=== PATIENT | female | born 1995 | race Caucasian/White ===

== ENCOUNTER 2018-10-18 21:03 | Inpatient (IN) | payer OTHER ==
[2018-10-18] MEDS ORDERED: PENICILLIN G-K 5 MILLION UNIT VIAL ONE (21:38)
[2018-10-18] MEDS ORDERED: OXYTOCIN 10 UNIT/ML VIAL ONE (21:38)
[2018-10-18] MEDS ORDERED: MISOPROSTOL 0.2 MG TABLET ONE (21:38)
[2018-10-18] MEDS ORDERED: OXYTOCIN/NORMAL SALINE 20 UNIT/1,000 ML RTUINJ ONE (21:38)
[2018-10-18] MEDS ORDERED: LIDOCAINE 1% INJ-PF (10 MG/ML) 30 ML SDV ONE (21:38)
[2018-10-18 21:55] LABS: HEMATOCRIT 33.6 % (36.0-47.0); HEMOGLOBIN 11.2 g/dL (12.0-15.5); MEAN CORPUSCULAR HEMOGLOBIN 28.3 pg (27.0-33.4); MEAN CORPUSCULAR HGB CONC 33.3 g/dL (32.0-36.0); MEAN CORPUSCULAR VOLUME 85 fl (80-97); PLATELET COUNT 386 10^3/uL (150-450); RED BLOOD COUNT 3.95 10^6/uL (3.72-5.28); RED CELL DISTRIBUTION WIDTH 13.9 % (11.5-14.0); WHITE BLOOD COUNT 22.8 10^3/uL (4.0-10.5)
[2018-10-18 21:58] LABS: APPEARANCE,URINE CLEAR; BILIRUBIN,URINE NEGATIVE (NEGATIVE); COLOR,URINE YELLOW; GLUCOSE, URINE NEGATIVE (NEGATIVE); KETONES,URINE NEGATIVE (NEGATIVE); LEUKOCYTE ESTERASE,URINE NEGATIVE (NEGATIVE); NITRITE,URINE NEGATIVE (NEGATIVE); PROTEIN,URINE NEGATIVE (NEGATIVE); URINE SPECIFIC GRAVITY 1.008; UROBILINOGEN,URINE NEGATIVE mg/dL (<2.0)
[2018-10-18] MEDS ORDERED: RINGERS SOLUTION,LACTATED 1,000 ML IV PRN (22:02)
[2018-10-18] MEDS ORDERED: PENICILLIN G POTASSIUM 5,000,000 UNIT in DEXTROSE 5%-WATER 100 ML IV ONE (22:03)
[2018-10-18 22:12] LABS: ABSOLUTE LYMPHOCYTES# (MANUAL) 7.5 10^3/uL (0.5-4.7); ABSOLUTE MONOCYTES # (MANUAL) 1.4 10^3/uL (0.1-1.4); ABSOLUTE NEUTROPHILS# (MANUAL) 13.7 10^3/uL (1.7-8.2); EOSINOPHILS % (MANUAL) 1 % (0-6); LYMPHOCYTES % (MANUAL) 33 % (13-45); MONOCYTES % (MANUAL) 6 % (3-13); SEGMENTED NEUTROPHILS % (MAN) 60 % (42-78); TOTAL CELLS COUNTED 100
[2018-10-18 22:14] LABS: URINE AMPHETAMINES SCREEN NEGATIVE; URINE BARBITURATES SCREEN NEGATIVE; URINE BENZODIAZEPINES SCREEN NEGATIVE; URINE COCAINE SCREEN NEGATIVE; URINE METHADONE SCREEN NEGATIVE; URINE PHENCYCLIDINE SCREEN NEGATIVE
[2018-10-18 22:14] LABS: PLATELET COMMENT ADEQUATE; RBC MORPHOLOGY COMMENT NORMO-CYTIC/CHROMIC
[2018-10-18 22:23] LABS: BASOPHILS % (MANUAL) 0 % (0-2)
[2018-10-18 22:24] LABS: URINE MARIJUANA (THC) SCREEN UNCONFIRMED POSITIVE
[2018-10-18 22:36] LABS: RUBELLA IGG ANTIBODY 6.78 IU/mL
[2018-10-18 22:53] LABS: RUBELLA INTERPRETATION NEGATIVE
[2018-10-18 23:26] LABS: CHLAM PCR NOT DETECTED (NOT DETECT); GON PCR NOT DETECTED (NOT DETECT)
--- NOTE | 2018-10-18 23:56 | Admission Physical ---
Datetime Report Generated by CPN: 10/18/2018 23:56 CURRENT ADMISSION Chief Complaint: Uterine Contractions Indication for Induction: Not Applicable Admit Impression : Term, Intrauterine ; No Active Labor; Intact Membranes Admit Impression- Other: No care Admit Plan: Observation/Evaluation ALLERGIES Medication Allergies: No Medication Allergies: No Known Allergies (11/30/2017) Latex: No Latex Allergies OBSTETRICAL HISTORY EDC: 10/28/2018 00:00 : 1 Para: 0 Term: 0 : 0 SAB: 0 IAB: 0 Ectopic: 0 Livin Cesareans: 0 VBACs: 0 Multiple Births: 0 Gestational Diabetes: No Rh Sensitization: No Incompetent Cervix: No MARIOLA: No Infertility: No ART Treatment: No Uterine Anomaly: No IUGR: No Hx Previous C/S: No Macrosomia: No Hx Loss/Stillborn: No PIH: No Hx : No Placenta Previa/Abruption: No Depression/PP Depression: No PTL/PROM: No Post Hemorrhage: No Current Procedures: Ultrasound Obstetrical History Comments: G1- current SEE RECORDS Alcohol: No Marijuana : Yes Cocaine: No Other Illicit Drugs: No Cigarettes: Smoker, Current Status Unknown. [id number] MEDICAL HISTORY Diabetes: No Blood Transfusion: No Pulmonary Disease (Asthma, TB): No Breast Disease: No Hypertension: No Checker Stocker Surgery: No Heart Disease: No Hosp/Surgery: No Autoimmune Disorder: No Anesthetic Complications: No Kidney Disease: No Abnormal Pap Smear: No Neuro/Epilepsy: No Psychiatric Disorders: Yes Other Medical Diseases: No Hepatitis/Liver Disease: No Significant Family History: No Varicosities/Phlebitis: No Trauma/Violence : No Thyroid Dysfunction: No Medical History Comments: Bipolar- on risperdal (not taking as perscribed) INFECTIOUS HISTORY Gonorrhea: No Genital Herpes: No Chlamydia: No Tuberculosis: No Syphilis: No Hepatitis: No HIV/AIDS Exposure: No Rash or Viral Illness: No HPV: No PHYSICAL EXAM General: Normal HEENT: Normal Neurologic: Normal Heart: Normal Lungs: Normal Genitourinary Exam: Normal Extremities: Normal Pelvic Type: Adequate Vital Signs: Reviewed; Within Normal Limits VAGINAL EXAM Dilatation: 2 Effacement: 100 Station: -2 Contraction Comments: q 2 min MEMBRANES Membranes: Intact FETUS A EGA: 38.4 Monitoring: External US FHR- Baseline: 125 Variability: Moderate 6-25bpm Accelerations: 15X15 Decelerations: None FHR Category: Category I Presentation: Vertex Admit Comment: Latent labor. Observe for cervical change. Admit if cervix makes a significant change. PLANS FOR LABOR AND DELIVERY Labor and Delivery: None Pain Management: Epidural INFORMED CONSENT Signature: with User ID: [email or web address]
[2018-10-19] MEDS ORDERED: EPHEDRINE SULFATE INJ 50 MG/1 ML AMPULE ONE ×2 (01:07→14:48)
[2018-10-19] MEDS ORDERED: FENTANYL/BUPIVACAINE/NS/PF 300 MCG/150 ML RTUINJ EPI ONE ×2 (01:08→13:49)
[2018-10-19] MEDS ORDERED: BUPIVACAINE HCL 0.25 % INJ/PF (2.5 MG/1 ML) 30 ML VIAL ONE (01:08)
[2018-10-19] MEDS ORDERED: PHENYLEPHRINE HCL INJ/PF 10 MG/1 ML SDV ONE (01:22)
[2018-10-19] MEDS ORDERED: FENTANYL CITRATE INJ/PF 100 MCG/2 ML AMPUL ONE (01:23)
[2018-10-19] MEDS ORDERED: PENICILLIN G-K 5 MILLION UNIT VIAL ONE ×3 (02:30→12:12)
[2018-10-19] MEDS: PENICILLIN G POTASSIUM 2,500,000 UNIT in DEXTROSE 5%-WATER 50 ML IV SCH ×3 (02:36→12:18)
[2018-10-19] MEDS ORDERED: OXYTOCIN/NORMAL SALINE 20 UNIT/1,000 ML RTUINJ IV PRN ×2 (06:48→17:35)
[2018-10-19] MEDS ORDERED: LIDOCAINE 2% INJ-PF (20 MG/ML) 10 ML AMPUL ONE ×2 (14:14→14:27)
[2018-10-19] MEDS ORDERED: OXYTOCIN/NORMAL SALINE 20 UNIT/1,000 ML RTUINJ ONE (17:25)
[2018-10-19] MEDS ORDERED: METHYLERGONOVINE MALEATE INJ/PF 0.2 MG/1 ML AMPULE ONE (17:26)
[2018-10-19] MEDS ORDERED: MISOPROSTOL 0.2 MG TABLET PR PRN (17:35)
[2018-10-19] MEDS ORDERED: PSEUDOEPHEDRINE HCL 30 MG TABLET PO PRN (17:35)
[2018-10-19] MEDS ORDERED: PROMETHAZINE HCL INJ 25 MG/1 ML VIAL IV PRN (17:35)
[2018-10-19] MEDS ORDERED: ACETAMINOPHEN WITH CODEINE #3 TABLET PO PRN ×2 (17:35)
[2018-10-19] MEDS ORDERED: PROMETHAZINE HCL 25 MG TABLET PO PRN (17:35)
[2018-10-19] MEDS ORDERED: ZOLPIDEM TARTRATE 5 MG TABLET PO PRN (17:35)
[2018-10-19] MEDS ORDERED: ACETAMINOPHEN 650 MG SUPP.RECT PR PRN (17:35)
[2018-10-19] MEDS ORDERED: NA PHOS,M-B/NA PHOS,DI-BA (ADULT) 133 ML ENEMA PR PRN (17:35)
[2018-10-19] MEDS ORDERED: MEASLES,MUMPS&RUBELLA VACC/PF 0.5 ML VIAL SUBCUT PRN (17:35)
[2018-10-19] MEDS ORDERED: BENZOCAINE/MENTHOL AEROSOL SPRAY 56 ML TOP PRN (17:35)
[2018-10-19] MEDS ORDERED: MAGNESIUM HYDROXIDE SUSP 30 ML UDCUP PO PRN (17:35)
[2018-10-19] MEDS ORDERED: GLYCERIN/WITCH HAZEL LEAF 1 EACH MED..WIPE TP PRN (17:35)
[2018-10-19] MEDS ORDERED: DIBUCAINE 1% OINTMENT 56 GM TP PRN (17:35)
[2018-10-19] MEDS ORDERED: PROMETHAZINE HCL 25 MG SUPP.RECT PR PRN (17:35)
[2018-10-19] MEDS ORDERED: DIPH/PERTUSS(ACELL)/TETANUS VAC/PF 0.5 ML SYR (>=10YO) IM PRN (17:35)
[2018-10-19] MEDS ORDERED: DIPHENHYDRAMINE HCL 25 MG CAPSULE PO PRN (17:35)
[2018-10-19] MEDS ORDERED: METHYLERGONOVINE MALEATE INJ/PF 0.2 MG/1 ML AMPULE IM PRN (17:35)
[2018-10-19] MEDS ORDERED: ACETAMINOPHEN WITH CODEINE #3 TABLET ONE (17:41)
--- NOTE | 2018-10-19 19:24 | Delivery Summary ---
Del Sum A-C Datetime Report Generated by CPN: 10/19/2018 19:24 DELIVERY PERSONNEL DELIVERY PERSONNEL: [id number] Delivery Doctor:: Colleen Bull MD Labor and Delivery Nurse:: Kaye Brown RNabrasive grinder Nurse:: Susan Humphrey RN Toll Gate Tender/PYROMETER MECHANIC: Subha Bishop, ST MATERNAL INFORMATION Delivery Anesthesia: Epidural Medications After Delivery: Pitocin Bolus-Please Comment; Methergine 0.2mg IM; Cytotec 1000mcg Per Rectum/Vagina Meds After Delivery Comment: Pitocin 20 units/1000 ml NSS 1500 mls Estimated Blood Loss (ml): 350 Maternal Complications: None Provider Comments: cytotec 1000 mcg per rectum methergine 0.2 mg IM given for bleeding LABOR SUMMARY EDC: 10/28/2018 00:00 No. Babies in Womb: 1 Attempted: No Labor Anesthesia: Epidural LABOR INFORMATION Reason for Induction: Not Applicable Onset of Labor: 10/19/2018 12:01 Complete Dilatation: 10/19/2018 15:53 Oxytocin: Augmentation Group B Beta Strep: Unknown Antibiotics # of Doses: 4 Antibiotics Time of Last Dose: 1216 Name of Antibiotic Given: PCN Steroids Given: None Reason Steroids Not Administered: Not Applicable MEMBRANES Membranes Rupture Method: Artificial Rupture of Membranes: 10/19/2018 12:51 Length of Rupture (hr): 4.43 Amniotic Fluid Color: Clear Amniotic Fluid Amount: Small Amniotic Fluid Odor: Normal STAGES OF LABOR Stage 1 hr: 3 Stage 1 min: 52 Stage 2 hr: 1 Stage 2 min: 24 Stage 3 hr: 0 Stage 3 min: 6 Total Time in Labor hr: 5 Total Time in Labor min: 22 VAGINAL DELIVERY Episiotomy: None Laceration #1: Vaginal Laceration Extension #1: First Degree Other Laceration: labia Laceration Repair: Not Applicable Sponge Count Correct: Yes Sharps Count Correct: Yes CSECTION DELIVERY Primary Indication: N/A Secondary Indication: N/A CSection Incidence: N/A Labor: N/A Elective: N/A CSection Incision: N/A BABY A INFORMATION Infant Delivery Date/Time: 10/19/2018 17:17 Method of Delivery: Vaginal Born in Route : No : N/A Forceps: N/A Vacuum Extraction: N/A Shoulder Dystocia : No PRESENTATION/POSITION BABY A Presentation: Cephalic Cephalic Presentation: Vertex Vertex Position: OA Breech Presentation: N/A PLACENTA INFORMATION BABY A Placenta Delivery Time : 10/19/2018 17:23 Placenta Method of Delivery: Spontaneous Placenta Status: Delivered SCORES BABY A Heart Rate 1 min: >100 bpm Resp Effort 1 min: Good Cry Reflex Irritability 1 min: Cough or Sneeze or Pulls Away Muscle Tone 1 min: Active Motion Color 1 min: Body [place], Extremities Blue Resuscitation Effort 1 min: Tactile Stimulation SCORE 1 MIN: 9 Heart Rate 5 min: >100 bpm Resp Effort 5 min: Good Cry Reflex Irritability 5 min: Cough or Sneeze or Pulls Away Muscle Tone 5 min: Active Motion Color 5 min: Body [place], Extremities Blue Resuscitation Effort 5 min: Tactile Stimulation SCORE 5 MIN: 9 INFANT INFORMATION BABY A Gestational Age at Delivery: 38.5 Gestational Status: Early Term- 37- 38.6 Weeks Infant Outcome : Liveborn Infant Condition : Stable Infant Sex: Male IDENTIFICATION BABY A Verification Date/Time: 10/19/2018 17:29 ID Band Number: [id number] Mother's Name Verified: Yes RN Verifying Infant: B.Patdy, RN and J.Field, RN WEIGHT/LENGTH BABY A Birthweight (gm): 3505 Infant Weight (lb): 7 Weight (oz): 12 Length (in): 20.50 Length (cm): 52.07 CORD INFORMATION BABY A No. Cord Vessels: 3 Nuchal Cord : N/A Cord Blood Taken: Yes-For Eval (Mom's Blood Type - or O+) Infant Suction: Mouth ASSESSMENT BABY A Complications: None Physical Findings at Delivery: Within Normal Limits Respirations: Appears Normal Skin to Skin: No Phy Therapist/ALS Called : No Infant Care By: LloydPatdale, MAXIMUS Transferred To: Remains with Mother BABY B INFORMATION : N/A SIGNATURES Signature: with User ID: [email or web address] : I was personally available for consultation and serving as supervising physician for the MLP.
[2018-10-19] MEDS: FAMOTIDINE 20 MG TABLET PO SCH (22:32)
[2018-10-19] MEDS: IBUPROFEN 800 MG TABLET PO SCH (22:33)
[2018-10-20] MEDS: DOCUSATE SODIUM 100 MG CAPSULE PO SCH ×2 (01:10→09:11)
[2018-10-20] MEDS: FERROUS SULFATE 325 MG TABLET PO SCH ×2 (01:10→09:11)
[2018-10-20] MEDS: IBUPROFEN 800 MG TABLET PO SCH ×2 (05:53→13:27)
[2018-10-20 06:55] LABS: HEMATOCRIT 23.5 % (36.0-47.0); MEAN CORPUSCULAR HEMOGLOBIN 28.4 pg (27.0-33.4); MEAN CORPUSCULAR HGB CONC 33.1 g/dL (32.0-36.0); MEAN CORPUSCULAR VOLUME 86 fl (80-97); PLATELET COUNT 272 10^3/uL (150-450); RED BLOOD COUNT 2.74 10^6/uL (3.72-5.28); RED CELL DISTRIBUTION WIDTH 14.2 % (11.5-14.0)
[2018-10-20 07:39] LABS: HEMOGLOBIN 7.8 g/dL (12.0-15.5)
[2018-10-20] MEDS: FAMOTIDINE 20 MG TABLET PO SCH (09:11)
[2018-10-20] MEDS ORDERED: SENNOSIDES/DOCUSATE 8.6-50 MG 1 EACH TABLET PO SCH (10:00)
[2018-10-20] MEDS ORDERED: PRENATAL VITAMIN W DHA CAPSULE PO SCH (10:00)
--- NOTE | 2018-10-20 10:24 | PDOC PROGRESS REPORT ---
Subjective-OB Progress Note for:: 10/20/18 Subjective: Pt doing well. Reports normal bleeding, voiding without difficulty. Would like to go home. Baby up for adoption. Physical Exam (OB) Vital Signs: Temp Pulse Resp BP Pulse Ox 98.0 F 66 16 100/59 L 100 10/20/18 07:07 10/20/18 07:07 10/20/18 07:07 10/20/18 07:07 10/20/18 07:07 Intake & Output 10/19/18 10/20/18 10/21/18 06:59 06:59 06:59 Intake Total 50 50 Balance 50 50 Weight 94.3 kg - PIH/Pre-Eclampsia Clonus: Negative Headache: Absent Epigastric Pain: No Visual Changes: No - Lochia Lochia Amount: Scant < 10 ml Lochia Color: Rubra/Red - Abdomen Description: Soft Hernia Present: No Fundal Description: Firm, Midline Fundal Height: u/u - u/2 Objective-Diagnostic Laboratory: 10/20/18 06:38 10/20/18 10/20/18 06:38 06:38 WBC 26.0 H RBC 2.74 L Hgb 7.8 L D Hct 23.5 L MCV 86 MCH 28.4 MCHC 33.1 RDW 14.2 H Plt Count 272 Blood Type O NEGATIVE Assessment and Plan(PN) - Assessment and Plan (1) (normal spontaneous vaginal delivery) Is this a current diagnosis for this admission?: Yes - Time Spent with Patient Time with patient: Less than 15 minutes Medications reviewed and adjusted accordingly: Yes - Disposition Anticipated Discharge: Home Within: within 24 hours
--- NOTE | 2018-10-20 10:29 | PDOC DISCHARGE SUMMARY ---
Final Diagnosis Discharge Date: 10/20/18 - Final Diagnosis (1) (normal spontaneous vaginal delivery) Is this a current diagnosis for this admission?: Yes (2) Bipolar 1 disorder Is this a current diagnosis for this admission?: Yes (3) Limited care Is this a current diagnosis for this admission?: Yes Discharge Data - Discharge Medication Prescriptions: Ibuprofen [Motrin 800 mg Tablet] 800 mg PO Q8 #60 tablet Home Medications: Ibuprofen [Motrin 800 mg Tablet] 800 mg PO Q8 #60 tablet 10/20/18 Reason(s) for Admission: Onset of Labor Intrapartum Procedure(s): Spontaneous Vaginal Delivery Complication(s): Laceration-Vaginal Laceration-Degree: 1st - Diagnosis Test Laboratory: Temp Pulse Resp BP Pulse Ox 98.0 F 66 16 100/59 L 100 10/20/18 07:07 10/20/18 07:07 10/20/18 07:07 10/20/18 07:07 10/20/18 07:07 10/18/18 10/18/18 10/20/18 21:10 21:32 06:38 RBC 3.95 2.74 L Hgb 11.2 L 7.8 L D Hct 33.6 L 23.5 L Urine Opiates Screen NEGATIVE - Discharge information/Instructions Discharge Activity: Activity As Tolerated, Pelvic Rest Discharge Diet: Regular Disposition: HOME, SELF-CARE Follow up with: [facility] in: 4, Weeks
[2018-10-20 11:20] VITALS: BP 131/79
[2018-10-20 13:37] LABS: HEPATITIS C VIRUS AB <0.1 s/co ratio (0.0-0.9)
[2018-10-20 14:54] LABS: HEPATITS B SURFACE ANTIGEN Negative (Negative)
== END 2018-10-20 17:15 | disposition home or self-care (01) | DRG 806 ==
LOC: LC 21:03 → LR 10-19 01:04 → 2S 10-19 20:00
PROVIDERS: ADMIT Obstetrics & Gynecology; ATTEND Obstetrics & Gynecology
PROC: 10E0XZZ Delivery of Products of Conception, External Approach (ICD-10-PCS; principal; 2018-10-19)
PROC: 3E0234Z Introduction of Serum, Toxoid and Vaccine into Muscle, Percutaneous Approach (ICD-10-PCS; 2018-10-20)
DX: O99.344 Other mental disorders complicating childbirth (principal); O99.324 Drug use complicating childbirth; Z37.0 Single live birth; F31.9 Bipolar disorder, unspecified; O70.0 First degree perineal laceration during delivery; O26.893 Other specified pregnancy related conditions, third trimester; F12.90 Cannabis use, unspecified, uncomplicated; Z67.41 Type O blood, Rh negative; O99.334 Smoking (tobacco) complicating childbirth; F17.210 Nicotine dependence, cigarettes, uncomplicated; Z79.899 Other long term (current) drug therapy; Z3A.38 38 weeks gestation of pregnancy
CPT/HCPCS: 36415; 80307; 81005; 85025; 85027; 85461; 86592; 86701; 86762; 86803; 86804; 86850; 86900; 86901; 87340; 87491; 87591; 94760; J2210; J2370; J2540; J2590; J2790; J3010; J3490; J7060

== ENCOUNTER 2020-01-24 01:11 | Inpatient (IN) | payer OTHER ==
[2020-01-24 02:06] LABS: APPEARANCE,URINE CLOUDY; BILIRUBIN,URINE NEGATIVE (NEGATIVE); COLOR,URINE YELLOW; GLUCOSE, URINE NEGATIVE (NEGATIVE); KETONES,URINE 80 mg/dL (NEGATIVE); LEUKOCYTE ESTERASE,URINE LARGE (NEGATIVE); NITRITE,URINE NEGATIVE (NEGATIVE); PROTEIN,URINE 100 mg/dL (NEGATIVE); URINE SPECIFIC GRAVITY 1.019
[2020-01-24 02:06] LABS: ABSOLUTE BASOPHILS # (AUTO) 0.1 10^3/uL (0.0-0.2); ABSOLUTE LYMPHOCYTES (AUTO) 3.6 10^3/uL (0.5-4.7); ABSOLUTE MONOCYTES (AUTO) 0.7 10^3/uL (0.1-1.4); ABSOLUTE NEUT (AUTO) 11.2 10^3/uL (1.7-8.2); BASOPHILS % (AUTO) 0.5 % (0-2); EOSINOPHILS % (AUTO) 0.2 % (0-6); HEMATOCRIT 32.6 % (36.0-47.0); HEMOGLOBIN 10.6 g/dL (12.0-15.5); LYMPHOCYTES % (AUTO) 22.9 % (13-45); MEAN CORPUSCULAR HEMOGLOBIN 25.5 pg (27.0-33.4); MEAN CORPUSCULAR HGB CONC 32.7 g/dL (32.0-36.0); MEAN CORPUSCULAR VOLUME 78 fl (80-97); MONOCYTES % (AUTO) 4.5 % (3-13); PLATELET COUNT 353 10^3/uL (150-450); RED BLOOD COUNT 4.18 10^6/uL (3.72-5.28); RED CELL DISTRIBUTION WIDTH 15.9 % (11.5-14.0); SEGMENTED NEUTROPHILS % (AUTO) 71.9 % (42-78); TOTAL CELLS COUNTED % (AUTO) 100 %; WHITE BLOOD COUNT 15.6 10^3/uL (4.0-10.5)
[2020-01-24] MEDS ORDERED: OXYTOCIN 10 UNIT/ML VIAL ONE ×2 (02:06→08:05)
[2020-01-24] MEDS ORDERED: LIDOCAINE 1% INJ-PF (10 MG/ML) 30 ML SDV ONE (02:07)
[2020-01-24] MEDS ORDERED: OXYTOCIN/0.9 % SODIUM CHLORIDE 30 UNIT/500 ML RTUINJ ONE (02:07)
[2020-01-24] MEDS ORDERED: MISOPROSTOL 0.2 MG TABLET ONE (02:07)
[2020-01-24] MEDS ORDERED: PENICILLIN G-K 5 MILLION UNIT VIAL ONE ×2 (02:12→06:10)
[2020-01-24] MEDS ORDERED: RINGERS SOLUTION,LACTATED 1,000 ML IV PRN ×2 (02:23→02:24)
[2020-01-24] MEDS ORDERED: PENICILLIN G POTASSIUM 5,000,000 UNIT in DEXTROSE 5%-WATER 100 ML IV ONE (02:36)
[2020-01-24] MEDS ORDERED: ONDANSETRON HCL INJ/PF 4 MG/2 ML SDV IV ONE (02:43)
[2020-01-24] MEDS ORDERED: ONDANSETRON HCL INJ/PF 4 MG/2 ML SDV ONE (02:44)
[2020-01-24] MEDS ORDERED: PENICILLIN G-K 5 MILLION UNIT VIAL IV ONE ×2 (02:45→06:45)
[2020-01-24 02:47] LABS: URINE AMPHETAMINES SCREEN NEGATIVE; URINE BARBITURATES SCREEN NEGATIVE; URINE BENZODIAZEPINES SCREEN NEGATIVE; URINE COCAINE SCREEN NEGATIVE; URINE METHADONE SCREEN NEGATIVE; URINE PHENCYCLIDINE SCREEN NEGATIVE
[2020-01-24 02:56] LABS: URINE MARIJUANA (THC) SCREEN UNCONFIRMED POSITIVE
--- NOTE | 2020-01-24 03:02 | RADIOLOGY REPORT (SQ) ---
Ultrasound OB limited on 01/24/2020 at 1:54 AM CLINICAL INDICATION: No care, patient in labor COMPARISON: None FINDINGS: Limited sonographic imaging is performed throughout the pelvis by transabdominal approach, both transverse and sagittal images are obtained. Single intrauterine fetus is noted in cephalic presentation. Positive cardiac activity is noted with heart rate of 126 bpm. Adequate amniotic fluid is noted with amniotic fluid index of 8.1 cm. Placenta is fundal to posterior in location with no evidence of placenta previa or abruption. Estimated gestational age by measurements is an approximate 39 week three day gestation. Estimated weight is 8 lbs. 3 oz. +/- 19 ounces. No gross abnormality is noted on limited imaging. IMPRESSION: Single living approximate 39 week three day intrauterine fetus in cephalic presentation.
[2020-01-24] MEDS ORDERED: EPHEDRINE SULFATE INJ 50 MG/1 ML AMPULE ONE (03:05)
[2020-01-24] MEDS ORDERED: ROPIVACAINE HCL 0.2% INJ/PF (2 MG/ML) 20 ML SDV ONE (03:06)
[2020-01-24] MEDS ORDERED: FENTANYL/BUPIVACAINE/NS/PF 300 MCG/150 ML RTUINJ EPI ONE (03:06)
[2020-01-24] MEDS ORDERED: OXYTOCIN/0.9 % SODIUM CHLORIDE 30 UNIT/500 ML RTUINJ IV PRN ×2 (06:53→08:07)
--- NOTE | 2020-01-24 07:17 | Admission Physical ---
Datetime Report Generated by CPN: 01/24/2020 07:17 CURRENT ADMISSION Chief Complaint: Uterine Contractions; Other Indication for Induction: Not Applicable Admit Impression : Term, Intrauterine Admit Plan: Admit to Unit; Initiate Labor Protocol ALLERGIES Medication Allergies: No Medication Allergies: No Known Allergies (01/24/2020) Latex: No Latex Allergies OBSTETRICAL HISTORY : 2 Para: 1 Term: 1 : 0 SAB: 0 IAB: 0 Ectopic: 0 Livin Multiple Births: 0 Gestational Diabetes: Unknown Rh Sensitization: No Incompetent Cervix: No MARIOLA: No Infertility: No ART Treatment: No Uterine Anomaly: No IUGR: Unknown Hx Previous C/S: No Macrosomia: Unknown Hx Loss/Stillborn: No PIH: Unknown Hx : No Placenta Previa/Abruption: No Depression/PP Depression: Yes PTL/PROM: No Post Hemorrhage: Yes Current Procedures: Ultrasound Obstetrical History Comments: G1: 10/2018; Limited PNC, PPH, baby given up for adoption G2: current; no PNC, baby to be given up for adoption SEE RECORDS Alcohol: No Marijuana : Yes Cocaine: No Other Illicit Drugs: No Cigarettes: Former Smoker. [id number] Cigarette Frequency: > 10 per day MEDICAL HISTORY Diabetes: No Blood Transfusion: No Pulmonary Disease (Asthma, TB): No Hypertension: No Material Flow Engineer Surgery: No Heart Disease: No Hosp/Surgery: Yes Autoimmune Disorder: No Anesthetic Complications: No Kidney Disease: No Abnormal Pap Smear: No Neuro/Epilepsy: No Psychiatric Disorders: Yes Other Medical Diseases: No Hepatitis/Liver Disease: No Significant Family History: Yes Varicosities/Phlebitis: No Trauma/Violence : Yes Thyroid Dysfunction: No INFECTIOUS HISTORY Gonorrhea: No Genital Herpes: No Chlamydia: No Tuberculosis: No Syphilis: No Hepatitis: No HIV/AIDS Exposure: No Rash or Viral Illness: No HPV: No PHYSICAL EXAM General: Normal HEENT: Normal Neurologic: Normal Thyroid: Normal Heart: Normal Lungs: Normal Breast: Deferred Back: Normal Abdomen: Normal Genitourinary Exam: Normal Extremities: Normal DTRs: Normal Pelvic Type: Adequate FETUS A Monitoring: External US PLANS FOR LABOR AND DELIVERY Labor and Delivery: None Pain Management: Epidural Feeding Preference: Formula Benefit of Breast Feed Discussed: Yes Circumcision: N/A INFORMED CONSENT Signature: with User ID: [email or web address]
[2020-01-24] MEDS ORDERED: PROMETHAZINE HCL 25 MG SUPP.RECT PR PRN (08:07)
[2020-01-24] MEDS ORDERED: DIPH/PERTUSS(ACELL)/TETANUS VAC/PF 0.5 ML SYR (>=10YO) IM PRN (08:07)
[2020-01-24] MEDS ORDERED: MAGNESIUM HYDROXIDE SUSP 30 ML UDCUP PO PRN (08:07)
[2020-01-24] MEDS ORDERED: PROMETHAZINE HCL 25 MG TABLET PO PRN (08:07)
[2020-01-24] MEDS ORDERED: DIBUCAINE 1% OINTMENT 28 GM TP PRN (08:07)
[2020-01-24] MEDS ORDERED: NA PHOS,M-B/NA PHOS,DI-BA (ADULT) 133 ML ENEMA PR PRN (08:07)
[2020-01-24] MEDS ORDERED: ZOLPIDEM TARTRATE 5 MG TABLET PO PRN (08:07)
[2020-01-24] MEDS ORDERED: DIPHENHYDRAMINE HCL 25 MG CAPSULE PO PRN (08:07)
[2020-01-24] MEDS ORDERED: PSEUDOEPHEDRINE HCL 30 MG TABLET PO PRN (08:07)
[2020-01-24] MEDS ORDERED: ACETAMINOPHEN 650 MG SUPP.RECT PR PRN (08:07)
[2020-01-24] MEDS ORDERED: GLYCERIN/WITCH HAZEL LEAF 1 EACH MED..WIPE TP PRN (08:07)
[2020-01-24] MEDS ORDERED: PROMETHAZINE HCL INJ 25 MG/1 ML VIAL IV PRN (08:07)
[2020-01-24] MEDS ORDERED: MEASLES,MUMPS&RUBELLA VACC/PF 0.5 ML VIAL SUBCUT PRN (08:07)
[2020-01-24] MEDS ORDERED: BENZOCAINE/MENTHOL AEROSOL SPRAY 56 ML TOP PRN (08:07)
[2020-01-24] MEDS ORDERED: ACETAMINOPHEN WITH CODEINE #3 TABLET ONE (08:14)
--- NOTE | 2020-01-24 09:10 | Warning Signs in Babies ---
VOD Warning Signs Datetime Report Generated by Ivette: 01/24/2020 09:09 VOD#608 -Warning Signs in Babies: Needs to be viewed. (01/24/2020 01:38:Keiko Kirkpatrick RN)
[2020-01-24] MEDS ORDERED: BENZOCAINE/MENTHOL AEROSOL SPRAY 56 ML ONE (10:06)
[2020-01-24] MEDS: PENICILLIN G POTASSIUM 2,500,000 UNIT in DEXTROSE 5%-WATER 50 ML IV SCH ×2 (10:42→11:17)
[2020-01-24] MEDS: DOCUSATE SODIUM 100 MG CAPSULE PO SCH ×2 (11:15→17:51)
[2020-01-24] MEDS: FAMOTIDINE 20 MG TABLET PO SCH ×2 (11:16→22:47)
[2020-01-24] MEDS: SENNOSIDES/DOCUSATE 8.6-50 MG 1 EACH TABLET PO SCH (11:16)
[2020-01-24] MEDS: FERROUS SULFATE 325 MG TABLET PO SCH ×2 (11:16→17:51)
[2020-01-24] MEDS: PRENATAL VITAMIN W DHA CAPSULE PO SCH (11:16)
--- NOTE | 2020-01-24 11:27 | Delivery Summary ---
Del Sum A-C Datetime Report Generated by CPN: 01/24/2020 11:27 DELIVERY PERSONNEL DELIVERY PERSONNEL: [id number] Delivery Doctor:: Florentin Mann MD Labor and Delivery Nurse:: Danilo Berry RNpipe recovery specialist Nurse:: Keiko Kirkpatrick RN Nursery Nurse:: Erma Gandhi RN Compressor Mechanic Bus/RADIO REPAIRER DOMESTIC: Eileen Ross, ST MATERNAL INFORMATION Delivery Anesthesia: Epidural Medications After Delivery: Pitocin 30 Units in 500ml NS/D5W Delivery QBL: 200 Maternal Complications: None; Other Complication Details: No care, [facility] LABOR SUMMARY EDC: 01/28/2020 00:00 No. Babies in Womb: 1 Attempted: No Labor Anesthesia: Epidural LABOR INFORMATION Reason for Induction: Not Applicable Onset of Labor: 01/23/2020 20:00 Complete Dilatation: 01/24/2020 07:24 Oxytocin: Augmentation Group B Beta Strep: UNKNOWN Antibiotics # of Doses: 2 Antibiotics Time of Last Dose: 617 Name of Antibiotic Given: PCN Steroids Given: None Reason Steroids Not Administered: Not Applicable MEMBRANES Membranes Rupture Method: Spontaneous Rupture of Membranes: 01/24/2020 06:48 Length of Rupture (hr): 1.18 Amniotic Fluid Color: Clear Amniotic Fluid Amount: Moderate Amniotic Fluid Odor: Normal STAGES OF LABOR Stage 1 hr: 11 Stage 1 min: 24 Stage 2 hr: 0 Stage 2 min: 35 Stage 3 hr: 0 Stage 3 min: 3 Total Time in Labor hr: 12 Total Time in Labor min: 2 VAGINAL DELIVERY Episiotomy: None Laceration #1: None Laceration Extension #1: N/A Laceration Repair: Not Applicable Sponge Count Correct: Yes Sharps Count Correct: Yes CSECTION DELIVERY Primary Indication: N/A Secondary Indication: N/A CSection Incidence: N/A Labor: N/A Elective: N/A CSection Incision: N/A BABY A INFORMATION Delivery Date/Time: 01/24/2020 07:59 Method of Delivery: Vaginal Nurse Controlled Delivery: No Born in Route : No : N/A Forceps: N/A Vacuum Extraction: N/A Shoulder Dystocia : No PRESENTATION/POSITION BABY A Presentation: Cephalic Cephalic Presentation: Vertex Vertex Position: Left Occipital Anterior Breech Presentation: N/A PLACENTA INFORMATION BABY A Placenta Delivery Time : 01/24/2020 08:02 Placenta Method of Delivery: Spontaneous Placenta Status: Delivered SCORES BABY A Heart Rate 1 min: >100 bpm Resp Effort 1 min: Good Cry Reflex Irritability 1 min: Cough or Sneeze or Pulls Away Muscle Tone 1 min: Some Flexion of Extremities Color 1 min: Blue/Pale Resuscitation Effort 1 min: Tactile Stimulation SCORE 1 MIN: 7 Heart Rate 5 min: >100 bpm Resp Effort 5 min: Good Cry Reflex Irritability 5 min: Cough or Sneeze or Pulls Away Muscle Tone 5 min: Active Motion Color 5 min: Body [place], Extremities Blue Resuscitation Effort 5 min: Tactile Stimulation SCORE 5 MIN: 9 INFANT INFORMATION BABY A Gestational Age at Delivery: 39.3 Gestational Status: Full Term- 39- 40.6 Weeks Outcome : Liveborn Condition : Stable Sex: Male IDENTIFICATION BABY A Infant Verification Date/Time: 01/24/2020 08:21 ID Band Number: [id number] Mother's Name Verified: Yes Infant RN Verifying : Mary Berry, MAXIMUS Additional Verifying Personnel: Henry Kirkpatrick RN WEIGHT/LENGTH BABY A Birthweight (gm): 3890 Infant Weight (lb): 8 Weight (oz): 9 Length (in): 21.00 Infant Length (cm): 53.34 CORD INFORMATION BABY A Nuchal Cord : N/A Cord Blood Taken: Yes-For Eval (Mom's Blood Type - or O+) Infant Suction: None ASSESSMENT BABY A Infant Complications: None Physical Findings at Delivery: Within Normal Limits; Molding of the Head Infant Respirations: Appears Normal Skin to Skin: No Skin to Skin Time (min): 0 Transferred To: Nursery BABY B INFORMATION : N/A SIGNATURES Signature: with User ID: [email or web address]
--- NOTE | 2020-01-24 11:27 | Birth Certificate Data ---
Cert Data Datetime Report Generated by CPN: 01/24/2020 11:27 CERTIFICATE DATA 47a. Care: No (01/24/2020 01:38:Magui Gastelum RN) 48b. Now Livin (01/24/2020 01:38:Leonila Trujillo RN) 48d. Date of Last Live : 10/19/2018 00:00 (01/24/2020 01:38:Keiko Kirkpatrick RN) 48e. Losses: 0 (01/24/2020 01:38:Keiko Kirkpatrick RN) RISK FACTORS IN THIS 49a. Diabetes: No (01/24/2020 01:38:Leonila Trujillo RN) 49b. Hypertension: No (01/24/2020 01:38:Leonila Trujillo RN) 49c. Previous Births: 0 (01/24/2020 01:38:Leonila Trujillo RN) 49d. Stillborns: No (01/24/2020 01:38:Magui Gastelum RN) 49d. IUGR: Unknown (01/24/2020 01:38:Magui Gastelum RN) 49e. Infertility Treatment: No (01/24/2020 01:38:Leonila Trujillo RN) Mother's Height 50b. Height Inches: 67 (01/24/2020 11:12:QS system process) Mother's Weight 51b. Weight at Time of Delivery: 238 (01/24/2020 11:12:QS system process) Infections Present/Treated 53a. Gonorrhea: No (01/24/2020 01:38:Leonila Trujillo RN) 53b. Syphilis: No (01/24/2020 01:38:Leonila Trujillo RN) Results this Hospital Visit: NONREACTIVE (01/24/2020 01:49:QS system process) 53c. Chlamydia: No (01/24/2020 01:38:Leonila Trujillo RN) 53d. Hepatitis B: No (01/24/2020 01:38:Leonila Trujillo RN) Results this Hospital Visit: Unknown (01/24/2020 01:38:Leonila Trujillo RN) 53i. Date Tested: 01/24/2020 00:00 (01/24/2020 01:38:Leonila Trujillo RN) Obstetric Procedures 54a, b, c. Obstetric Procedures: Ultrasound (01/24/2020 01:38:Magui Gastelum RN) Cigarette Smoking 55a. Packs: 1 (01/24/2020 01:38:Leonila Trujillo RN) 55b. 1st Trimester of Preg- Ci (01/24/2020 01:38:Leonila Trujillo RN) 55b. Packs: 0 (01/24/2020 01:38:Leonila Trujillo RN) 55c. 2nd Trimester of Preg- Ci (01/24/2020 01:38:Leonila Trujillo RN) 55c. Packs: 0 (01/24/2020 01:38:Leonila Trujillo RN) 55d. 3rd Trimester of Preg- Ci (01/24/2020 01:38:Leonila Trujillo RN) 55d. Packs: 0 (01/24/2020 01:38:Leonila Trujillo RN) Onset of Labor 56a. PROM >12 Hrs: 1.18 (01/24/2020 06:48:QS system process) 56b. Precipitous Labor <3 Hrs: 12 (01/24/2020 01:38:QS system process) 56c. Prolonged Labor > 20 Hrs: 12 (01/24/2020 01:38:QS system process) 57a. Induction of Labor: Augmentation (01/24/2020 01:38:Keiko Kirkpatrick RN) 57c. Non-Vertex Presentation A: Vertex (01/24/2020 01:38:Keiko Kirkpatrick RN) 57d. Steroids - Lung Mat: None (01/24/2020 01:38:Lyn Cm RN) 57d. Steroids - Lung Mat: Not Applicable (01/24/2020 01:38:Lyn Cm RN) 57e. Antibiotics During Labor: 0618 (01/24/2020 01:38:Danilo Berry RN) 57g. Moderate/Heavy Meconium: Clear (01/24/2020 06:48:Lyn Cm RN) 57h. Intolerance of Labor: N/A (01/24/2020 01:38:Lyn Cm RN) : N/A (01/24/2020 01:38:Lyn Cm RN) 57i. Epidural/Spinal Anesthesia: Epidural (01/24/2020 01:38:Lyn Cm RN) Method of Delivery 58a. Forceps - Unsuccessful A: N/A (01/24/2020 01:38:Keiko Kirkpatrick RN) 58b. Vacuum - Unsuccessful A: N/A (01/24/2020 01:38:Keiko Kirkpatrick RN) 58c. Presentation at 58c. Presentation at - A : Vertex (01/24/2020 01:38:Keiko Kirkpatrick RN) 58c. Presentation at - A : N/A (01/24/2020 01:38:Keiko Kirkpatrick RN) 58c. Presentation at - A : Cephalic (01/24/2020 02:08:Leonila Trujillo RN) Final Route and Method of Del 58d. Baby A Route/Delivery: Vaginal (01/24/2020 01:38:Keiko Kirkpatrick RN) 58e. Trial of Labor Attempted: No (01/24/2020 01:38:Lyn Cm RN) 58e. Trial of Labor Attempted A: N/A (01/24/2020 01:38:Lyn Cm RN) 58e. Trial of Labor Attempted B: N/A (01/24/2020 01:38:Lyn Kossmann, RN) Maternal Morbidity 59b. 3rd or 4th Degree Lacs: None (01/24/2020 01:38:Florentin Mann, MD ([facility])) Birthweight Baby A: 3890 (01/24/2020 01:38:Erma Gandhi RN) 60a. Pounds : 8 (01/24/2020 01:38:QS system process) 60b. Ounces: 9 (01/24/2020 01:38:QS system process) 61. GA at Delivery Baby A: 39.3 (01/24/2020 01:38:Keiko Kirkpatrick RN) : Full Term- 39- 40.6 Weeks (01/24/2020 01:38:QS system process) 62a. 5 Minute Baby A: 9 (01/24/2020 01:38:QS system process)
[2020-01-24 11:55] LABS: CHLAM PCR DETECTED (NOT DETECT)
[2020-01-24] MEDS: IBUPROFEN 800 MG TABLET PO SCH ×2 (13:31→22:30)
[2020-01-24] MEDS ORDERED: AZITHROMYCIN 1 GM SUSP PACKET PO ONE (16:54)
[2020-01-24] MEDS ORDERED: AZITHROMYCIN 1 GM SUSP PACKET ONE (17:47)
[2020-01-24] MEDS: ACETAMINOPHEN WITH CODEINE #3 TABLET PO PRN (17:51)
[2020-01-25] MEDS: IBUPROFEN 800 MG TABLET PO SCH ×2 (05:08→13:33)
[2020-01-25 07:09] LABS: HEMATOCRIT 25.5 % (36.0-47.0); MEAN CORPUSCULAR HEMOGLOBIN 25.6 pg (27.0-33.4); MEAN CORPUSCULAR HGB CONC 32.6 g/dL (32.0-36.0); MEAN CORPUSCULAR VOLUME 79 fl (80-97); PLATELET COUNT 248 10^3/uL (150-450); RED BLOOD COUNT 3.25 10^6/uL (3.72-5.28); RED CELL DISTRIBUTION WIDTH 15.8 % (11.5-14.0); WHITE BLOOD COUNT 12.2 10^3/uL (4.0-10.5)
[2020-01-25 07:10] LABS: HEMOGLOBIN 8.3 g/dL (12.0-15.5)
[2020-01-25 08:18] VITALS: BP 93/64
--- NOTE | 2020-01-25 09:38 | PDOC DISCHARGE SUMMARY ---
Impression - Admit/DC Date/PCP Admission Date/Primary Care Provider: 01/24/20 02:08 SOPHIE RESTREPO MD Discharge Date: 01/25/20 - Discharge Diagnosis (1) Bipolar 1 disorder Is this a current diagnosis for this admission?: Yes (2) Limited care Is this a current diagnosis for this admission?: Yes (3) (normal spontaneous vaginal delivery) Is this a current diagnosis for this admission?: Yes - Assessment Summary: patient had normal vaginal delivery. baby is up for adoption. patient is doing well but she does need her Rhogam as she is MBT O neg. legal is due to come for finalization of adoption process in about an hour per the patient's partner. she then desires discharge home - Additional Information Referrals: SOPHIE PRESLEY MD [Primary Care Provider] - Home Medications: No Home Medications 01/24/20 History of Present Illiness History of Present Illness: JUAN JAIMES is a 24 year old female Physical Exam - Physical Exam Vital Signs: Temp Pulse Resp BP Pulse Ox 97.7 F 52 L 18 93/64 L 100 01/25/20 07:48 01/25/20 07:48 01/25/20 07:48 01/25/20 07:48 01/25/20 07:48 Intake & Output 01/24/20 01/25/20 01/26/20 06:59 06:59 06:59 Intake Total 1200 Balance 1200 Weight 108.4 kg Results Laboratory Results: WBC 12.2 10^3/uL (4.0-10.5) H 01/25/20 06:58 RBC 3.25 10^6/uL (3.72-5.28) L 01/25/20 06:58 Hgb 8.3 g/dL (12.0-15.5) L D 01/25/20 06:58 Hct 25.5 % (36.0-47.0) L 01/25/20 06:58 MCV 79 fl (80-97) L 01/25/20 06:58 MCH 25.6 pg (27.0-33.4) L 01/25/20 06:58 MCHC 32.6 g/dL (32.0-36.0) 01/25/20 06:58 RDW 15.8 % (11.5-14.0) H 01/25/20 06:58 Plt Count 248 10^3/uL (150-450) 01/25/20 06:58 Lymph % (Auto) 22.9 % (13-45) 01/24/20 01:49 [place] % (Auto) 4.5 % (3-13) 01/24/20 01:49 Eos % (Auto) 0.2 % (0-6) 01/24/20 01:49 Baso % (Auto) 0.5 % (0-2) 01/24/20 01:49 Absolute Neuts (auto) 11.2 10^3/uL (1.7-8.2) H 01/24/20 01:49 Absolute Lymphs (auto) 3.6 10^3/uL (0.5-4.7) 01/24/20 01:49 Absolute Monos (auto) 0.7 10^3/uL (0.1-1.4) 01/24/20 01:49 Absolute Eos (auto) 0.0 10^3/uL (0.0-0.6) 01/24/20 01:49 Absolute Basos (auto) 0.1 10^3/uL (0.0-0.2) 01/24/20 01:49 Seg Neutrophils % 71.9 % (42-78) 01/24/20 01:49 Urine Color YELLOW 01/24/20 01:28 Urine Appearance CLOUDY 01/24/20 01:28 Urine pH 5.0 (5.0-9.0) 01/24/20 01:28 Ur Specific [place] 1.019 01/24/20 01:28 Urine Protein 100 mg/dL (NEGATIVE) H 01/24/20 01:28 Urine Glucose (UA) NEGATIVE mg/dL (NEGATIVE) 01/24/20 01:28 Urine Ketones 80 mg/dL (NEGATIVE) H 01/24/20 01:28 Urine Blood NEGATIVE (NEGATIVE) 01/24/20 01:28 Urine Nitrite NEGATIVE (NEGATIVE) 01/24/20 01:28 Urine Bilirubin NEGATIVE (NEGATIVE) 01/24/20 01:28 Urine Urobilinogen 2.0 mg/dL (<2.0) H 01/24/20 01:28 Ur Leukocyte Esterase LARGE (NEGATIVE) H 01/24/20 01:28 Urine WBC (Auto) 142 /HPF 01/24/20 01:28 Urine RBC (Auto) 32 /HPF 01/24/20 01:28 Urine Bacteria (Auto) TRACE /HPF 01/24/20 01:28 Squamous Epi Cells Auto 2 /HPF 01/24/20 01:28 Urine Mucus (Auto) MOD /LPF 01/24/20 01:28 Urine Yeast (Budding) PRESENT /HPF 01/24/20 01:28 Urine Ascorbic Acid NEGATIVE (NEGATIVE) 01/24/20 01:28 Urine Opiates Screen NEGATIVE 01/24/20 01:28 Urine Methadone Screen NEGATIVE 01/24/20 01:28 Ur Barbiturates Screen NEGATIVE 01/24/20 01:28 Ur Phencyclidine Scrn NEGATIVE 01/24/20 01:28 Ur Amphetamines Screen NEGATIVE 01/24/20 01:28 U Benzodiazepines Scrn NEGATIVE 01/24/20 01:28 Urine Cocaine Screen NEGATIVE 01/24/20 01:28 U Marijuana (THC) Screen UNCONFIRMED POSITIVE 01/24/20 01:28 RPR NONREACTIVE (NONREACTIVE) 01/24/20 01:49 Chlamydia DNA (PCR) DETECTED (NOT DETECT) H 01/24/20 09:35 HIV 1&2 Antibody NEGATIVE (NEGATIVE) 01/24/20 01:49 N.gonorrhoeae DNA (PCR) NOT DETECTED (NOT DETECT) 01/24/20 09:35 Rubella IgG Antibody 6.49 IU/mL 01/24/20 01:49 Rubella IgG Ab Interp NEGATIVE 01/24/20 01:49 Blood Type O NEGATIVE 01/24/20 01:49 Antibody Screen NEGATIVE 01/24/20 01:49 Impressions: Obstetrics Ultrasound 01/24/20 01:30 IMPRESSION: Single living approximate 39 week three day intrauterine fetus in cephalic presentation. Stroke Is this a Stroke Patient?: No Acute Heart Failure - Is this a Heart Failure Patient?: No
[2020-01-25] MEDS: PRENATAL VITAMIN W DHA CAPSULE PO SCH (09:56)
[2020-01-25] MEDS: FAMOTIDINE 20 MG TABLET PO SCH (09:56)
[2020-01-25] MEDS: DOCUSATE SODIUM 100 MG CAPSULE PO SCH (09:56)
[2020-01-25] MEDS: FERROUS SULFATE 325 MG TABLET PO SCH (09:56)
[2020-01-25] MEDS: SENNOSIDES/DOCUSATE 8.6-50 MG 1 EACH TABLET PO SCH (09:56)
[2020-01-25] MEDS: ACETAMINOPHEN WITH CODEINE #3 TABLET PO PRN ×2 (09:58→14:09)
[2020-01-26 08:37] LABS: HEPATITIS C VIRUS AB <0.1 s/co ratio (0.0-0.9)
[2020-01-26 09:12] LABS: HEPATITS B SURFACE ANTIGEN Negative (Negative)
== END 2020-01-25 15:12 | disposition home or self-care (01) | DRG 807 ==
LOC: LC 01:11 → LR 02:08 → 2S 10:30
PROVIDERS: ADMIT Obstetrics & Gynecology Gynecology; ATTEND Obstetrics & Gynecology Gynecology
PROC: 10E0XZZ Delivery of Products of Conception, External Approach (ICD-10-PCS; principal; 2020-01-24)
DX: O99.344 Other mental disorders complicating childbirth (principal); Z37.0 Single live birth; F31.9 Bipolar disorder, unspecified; Z11.59 Encounter for screening for other viral diseases; Z87.891 Personal history of nicotine dependence; Z3A.39 39 weeks gestation of pregnancy
CPT/HCPCS: 1967; 36415; 76815; 80307; 80349; 81001; 85025; 85027; 86592; 86701; 86762; 86803; 86804; 86850; 86900; 86901; 87340; 87491; 87591; 94760; C1758; G0480; J2405; J2540; J2590; J2795; J3010; J3490; J7060; Q0144